=== PATIENT | female | born 1955 | race Caucasian/White ===

== ENCOUNTER 2019-04-29 09:07 | Observation (INO) ==
[2019-04-29 10:05] LABS: Basophils # 0.1 K/mcL (0.0-0.2); Basophils % 1.1 %; Eosinophils # 0.3 K/mcL (0.0-0.6); Eosinophils % 5.7 %; Hemoglobin 12.8 g/dL (11.5-15.4); Immature Granulocytes % 0.2 % (0-4); Lymphocytes # 1.7 K/mcL (0.6-4.6); Lymphocytes % 36.8 %; Mean Corpuscular HGB Conc 31.2 g/dL (31.6-35.5); Mean Corpuscular Hemoglobin 27.9 pg (28.0-33.3); Mean Corpuscular Volume 89.3 fL (83.0-100.0); Mean Platelet Volume 11.5 fL (9.4-12.4); Monocytes # 0.4 K/mcL (0.0-1.3); Monocytes % 9.4 %; Neutrophils # 2.1 K/mcL (1.6-8.9); Platelet Count 205 K/mcL (140-400); Red Blood Count 4.59 M/mcL (3.82-4.97); Red Cell Distribution Width 13.9 % (11.5-14.5); Segmented Neutrophils % 46.8 %; White Blood Count 4.6 K/mcL (4.3-11.1)
[2019-04-29 10:12] LABS: INR 0.9; Prothrombin Time 10.5 Seconds (9.4-12.1)
[2019-04-29 10:14] LABS: Activated Partial Thrombo Time 31.2 Seconds (26.0-36.0)
[2019-04-29 10:42] LABS: Alanine Aminotransferase 13 Units/L (7-52); Albumin 4.1 g/dL (3.5-5.7); Albumin/Globulin Ratio 1.5 (1.1-2.2); Alkaline Phosphatase 64 Units/L (34-104); Aspartate Amino Transferase 15 Units/L (13-39); BUN/Creatinine Ratio 26 (6-26); Bilirubin,Direct 0.1 mg/dL (0.0-0.2); Bilirubin,Indirect 0.5 mg/dL (0.0-1.2); Bilirubin,Total 0.6 mg/dL (0.3-1.0); Blood Urea Nitrogen 20 mg/dL (8-23); Calcium 9.2 mg/dL (8.6-10.3); Carbon Dioxide 27 mEq/L (23-29); Chloride 109 mEq/L (98-107); Ethanol < 10 mg/dL (Less than 10); Globulin 2.8 g/dL (2.4-3.5); Glucose 113 mg/dL (70-105); Osmolality,Calculated 297 (280-300); Potassium 4.9 mEq/L (3.5-5.1); Sodium 142 mEq/L (136-145); Thyroid Stimulating Hormone 1.727 mcIU/mL (0.340-5.600); Total Protein 6.9 g/dL (6.4-8.9); Troponin I < 0.03 ng/mL (< 0.04); eGFR For African Americans > 60 (> 60); eGFR For Non-African Americans > 60 (> 60)
--- NOTE | 2019-04-29 10:58 | Emergency Department Note ---
Disposition Clinical Impression: Altered mental status Qualifiers: Altered mental status type: unspecified Qualified Code(s): R41.82 - Altered mental status, unspecified Disposition: Admitted As Inpatient Condition: Fair Time of Disposition: 13:00 Altered Mental Status HPI - General Chief Complaint: ED Altered Mental Status Stated Complaint: AMS, abscess Time Seen by Provider: 04/29/19 09:13 Source: patient, family Limitations: no limitations Nursing Notes Reviewed: Yes Vital Signs Reviewed: Yes - History of Present Illness HPI Narrative: Kelli is a pleasant 62-year-old female. She presents the emergency room following a workup on a 24 for altered mental status with combative behavior. Daughter, at bedside states that she took her home yesterday and was able to start the antibiotics. Daughter states that the patient lives about 2 minutes from her house. Daughter received a phone call this morning saying that mom was worse and that she needed to go back to the emergency room. Mom notes that she felt increasingly weak especially in the legs. Kelli is concerned for dental abscess. Review of CT scan yesterday shows that there was no upward tracking and no abscess pocket in the facial cavities. Patient denies fevers and states that she did receive her antibiotics orally last night. No antibiotics were given this morning prior to coming to the emergency room. Patient and daughter both deny patient is having or complaining of fevers, chest pain, shortness of breath. Patient denies falls hits to the head or other injuries or concerns at this time. - Related Data Home Medications Medication Instructions Recorded Confirmed Clopidogrel [Plavix] 75 mg PO DAILY 04/28/19 04/29/19 Isosorbide MONOnitrate (24 HR) 60 mg PO DAILY 04/28/19 04/29/19 [Imdur] Lisinopril [Zestril] 20 mg PO DAILY 04/28/19 04/29/19 Metoprolol [Lopressor] 25 mg PO BID 04/28/19 04/29/19 amLODIPine [Norvasc] 5 mg PO DAILY 04/28/19 04/29/19 metFORMIN [Glucophage] 500 mg PO BIDWM 04/28/19 04/29/19 Aspirin [Lo-Dose Aspirin EC] 81 mg PO DAILY 04/29/19 04/29/19 Atorvastatin [Lipitor] 80 mg PO HS 04/29/19 04/29/19 Glimepiride [Amaryl] 2 mg PO DAILY 04/29/19 04/29/19 Allergies Allergy/AdvReac Type Severity Reaction Status Date / Time promethazine [From Phenergan] Allergy See Verified 04/29/19 15:54 Comments All systems ED: reviewed and negative except as stated. Review of Systems: As Per HPI Past Medical History - Past Medical History Medical history: Reports: asthma, diabetes, myocardial infarction Psychiatric history: Reports: depression - Social History Smoking Status: Current every day smoker Smokeless Tobacco Status: No Alcohol use: Reports: none Drug use: Reports: none Physical Exam - General Limitations: no limitations General appearance: alert Course Course Narrative: While in the emergency room patient had multiple episodes where she was breathing down to 38. On the monitor she had sinus bradycardic. Review of EKG on the monitor also reviewed this with sinus bradycardic. Patient initially declined that she took a beta shruthi to me however later told nursing staff that she was in fact taking a beta shruthi. Patient was was admitted per Dr. Grullon was counseled to cardiology. Vital Signs Temperature 98.1 F 04/29/19 09:09 Pulse Rate 51 04/29/19 09:09 Respiratory Rate 18 04/29/19 09:09 Blood Pressure 164/69 04/29/19 09:09 O2 Sat by Pulse Oximetry 98 04/29/19 09:09 Temperature 98.1 F 04/29/19 09:13 Pulse Rate 57 04/29/19 14:33 Respiratory Rate 18 04/29/19 14:33 Blood Pressure 101/49 04/29/19 14:33 O2 Sat by Pulse Oximetry 95 04/29/19 14:33 Oxygen Delivery Oxygen Delivery Room Air Altered Mental Status - Medical Records Medical records reviewed: Yes I reviewed the patient's medical records. - Lab Data Lab results reviewed: Yes I reviewed the patient's lab results. Result diagrams: 04/29/19 09:31 04/29/19 09:31 Lab Results 04/29/19 04/29/19 04/29/19 Range/Units 09:31 09:31 09:31 WBC 4.6 (4.3-11.1) K/mcL RBC 4.59 (3.82-4.97) M/mcL Hgb 12.8 (11.5-15.4) g/dL Hct 41.0 (35.3-44.9) % MCV 89.3 (83.0-100.0) fL MCH 27.9 L (28.0-33.3) pg MCHC 31.2 L (31.6-35.5) g/dL RDW 13.9 (11.5-14.5) % Plt Count 205 (140-400) K/mcL MPV 11.5 (9.4-12.4) fL Immature Gran % 0.2 (0-4) % Seg Neutrophils % 46.8 % Lymphocytes % 36.8 % Monocytes % 9.4 % Eosinophils % 5.7 % Basophils % 1.1 % Neutrophils # 2.1 (1.6-8.9) K/mcL Lymphocytes # 1.7 (0.6-4.6) K/mcL Monocytes # 0.4 (0.0-1.3) K/mcL Eosinophils # 0.3 (0.0-0.6) K/mcL Basophils # 0.1 (0.0-0.2) K/mcL PT 10.5 (9.4-12.1) Seconds INR 0.9 APTT 31.2 (26.0-36.0) Seconds Sodium 142 (136-145) mEq/L Potassium 4.9 (3.5-5.1) mEq/L Chloride 109 H (98-107) mEq/L Carbon Dioxide 27 (23-29) mEq/L BUN 20 (8-23) mg/dL Creatinine 0.78 (0.60-1.20) mg/dL Est GFR ( Amer) > 60 (> 60) Est GFR (Non-Af Amer) > 60 (> 60) BUN/Creatinine Ratio 26 (6-26) Glucose 113 H (70-105) mg/dL Calculated Osmolality 297 (280-300) Calcium 9.2 (8.6-10.3) mg/dL Total Bilirubin 0.6 (0.3-1.0) mg/dL Direct Bilirubin 0.1 (0.0-0.2) mg/dL Indirect Bilirubin 0.5 (0.0-1.2) mg/dL AST 15 (13-39) Units/L ALT 13 (7-52) Units/L Alkaline Phosphatase 64 (34-104) Units/L Troponin I < 0.03 (< 0.04) ng/mL Serum Total Protein 6.9 (6.4-8.9) g/dL Albumin 4.1 (3.5-5.7) g/dL Globulin 2.8 (2.4-3.5) g/dL Albumin/Globulin Ratio 1.5 (1.1-2.2) TSH 1.727 (0.340-5.600) mcIU/mL Urine Color (Yellow) Urine Clarity (Clear) Urine pH (5.0-8.0) pH Units Ur Specific [place] (1.010-1.025) Urine Protein (Neg-Trace) mg/dL Urine Glucose (UA) (Normal) mg/dL Urine Ketones (Negative) mg/dL Urine Blood (Negative) Urine Nitrite (Negative) Urine Bilirubin (Negative) Urine Urobilinogen (Normal) mg/dL Ur Leukocyte Esterase (Negative) Ur Culture Indicated? (NO) Urine Opiates Screen (Ibypiw=134) ng/mL Ur Buprenorphine Scrn (Cutoff=5) ng/mL Ur Barbiturates Screen ([place]=901) ng/mL Ur Phencyclidine Scrn (Cutoff=25) ng/mL Ur Amphetamines Screen (Noqkzp=9285) ng/mL U Benzodiazepines Scrn (Tigxmz=778) ng/mL Urine Cocaine Screen (Cutoff= 300) ng/mL U Marijuana (THC) Screen (Cutoff = 50) ng/mL Ur Drug Screen Interp Ethyl Alcohol < 10 (Less than 10) mg/dL 04/29/19 04/29/19 Range/Units 11:12 11:12 WBC (4.3-11.1) K/mcL RBC (3.82-4.97) M/mcL Hgb (11.5-15.4) g/dL Hct (35.3-44.9) % MCV (83.0-100.0) fL MCH (28.0-33.3) pg MCHC (31.6-35.5) g/dL RDW (11.5-14.5) % Plt Count (140-400) K/mcL MPV (9.4-12.4) fL Immature Gran % (0-4) % Seg Neutrophils % % Lymphocytes % % Monocytes % % Eosinophils % % Basophils % % Neutrophils # (1.6-8.9) K/mcL Lymphocytes # (0.6-4.6) K/mcL Monocytes # (0.0-1.3) K/mcL Eosinophils # (0.0-0.6) K/mcL Basophils # (0.0-0.2) K/mcL PT (9.4-12.1) Seconds INR APTT (26.0-36.0) Seconds Sodium (136-145) mEq/L Potassium (3.5-5.1) mEq/L Chloride (98-107) mEq/L Carbon Dioxide (23-29) mEq/L BUN (8-23) mg/dL Creatinine (0.60-1.20) mg/dL Est GFR ( Amer) (> 60) Est GFR (Non-Af Amer) (> 60) BUN/Creatinine Ratio (6-26) Glucose (70-105) mg/dL Calculated Osmolality (280-300) Calcium (8.6-10.3) mg/dL Total Bilirubin (0.3-1.0) mg/dL Direct Bilirubin (0.0-0.2) mg/dL Indirect Bilirubin (0.0-1.2) mg/dL AST (13-39) Units/L ALT (7-52) Units/L Alkaline Phosphatase (34-104) Units/L Troponin I (< 0.04) ng/mL Serum Total Protein (6.4-8.9) g/dL Albumin (3.5-5.7) g/dL Globulin (2.4-3.5) g/dL Albumin/Globulin Ratio (1.1-2.2) TSH (0.340-5.600) mcIU/mL Urine Color Yellow (Yellow) Urine Clarity Clear (Clear) Urine pH 6.0 (5.0-8.0) pH Units Ur Specific [place] 1.010 (1.010-1.025) Urine Protein Negative (Neg-Trace) mg/dL Urine Glucose (UA) Normal (Normal) mg/dL Urine Ketones Negative (Negative) mg/dL Urine Blood Negative (Negative) Urine Nitrite Negative (Negative) Urine Bilirubin Negative (Negative) Urine Urobilinogen Normal (Normal) mg/dL Ur Leukocyte Esterase Negative (Negative) Ur Culture Indicated? NO (NO) Urine Opiates Screen Negative (Rmggcm=440) ng/mL Ur Buprenorphine Scrn Negative (Cutoff=5) ng/mL Ur Barbiturates Screen Negative (Jtuzav=205) ng/mL Ur Phencyclidine Scrn Negative (Cutoff=25) ng/mL Ur Amphetamines Screen Negative (Aurqox=1513) ng/mL U Benzodiazepines Scrn Negative (Jeysde=723) ng/mL Urine Cocaine Screen Negative (Cutoff= 300) ng/mL U Marijuana (THC) Screen Negative (Cutoff = 50) ng/mL Ur Drug Screen Interp See Below Ethyl Alcohol (Less than 10) mg/dL - Radiology Data Radiology results reviewed: No I reviewed the patient's radiology results. Radiology labs were reviewed from yesterday. Repeat head scan repeats facial scan was not performed due to proximity and time from initial scans. Patient has been afebrile with the only abnormal vital sign the sinus bradycardia. She was not given any antipyretics and did not have an elevated temperature while in the emergency room. TPA Checklist - LKW: 3-4.5 hrs Add. Warnings/Precautions Patient/family understanding: The patient/family members have been counseled and understood the risk, benefit, and alternatives of treatment. Attestation Statement - Attestation Attestation: Patient was seen in cooperation with physician software developer manager. I reviewed the history, physical, assessment, and plan, and agree with the findings. I also had personal [id number] time with this patient and evaluated the patient. 63-year-old female returns to the ER having been seen last night for dental a bscess and mental status changes. Last night after thorough workup and I personally had seen the patient she actually was doing quite well and wanted to go home. We did offer admission and was declined at that time. She comes in today with increasing confusion she feels now swelling of the face on the right side as well as the left side, and some dizziness and unsteadiness with her gait. Review of systems as above remainder negative. Physical exam vital signs patient was bradycardic. Other vital signs are okay. ENT is less swollen than it was yesterday on the left side I do not appreciate significant swelling on the right side. Heart regular rhythm and bradycardia. Lungs are clear. Abdomen is soft and nontender. Extremities unremarkable. Neurologically she is alert moves all extremities no focal deficits. Skin no rashes. Psych normal. ED course. Workup was repeated as from yesterday. Labs did not show any significant abnormalities. Patient continued have issues of bradycardia and dizziness while here. She had no syncopal episodes while here. We spoke with the hospitalist service agreed to accept the patient for admission. I agree with the physician software developer manager assessment and plan. ED procedures I reviewed the patient's EKG as well as the resident physician interpretation and I agree with the findings.
[2019-04-29 11:48] LABS: Amphetamine Screen,Urine Negative ng/mL (Cutoff=1000); Barbiturate Screen,Urine Negative ng/mL (Cutoff=200); Benzodiazepines Screen,Urine Negative ng/mL (Cutoff=200); Cannabinoid Screen,Urine Negative ng/mL (Cutoff = 50); Cocaine Screen,Urine Negative ng/mL (Cutoff= 300); Opiate Screen,Urine Negative ng/mL (Cutoff=300); Phencyclidine Screen,Urine Negative ng/mL (Cutoff=25)
[2019-04-29 11:53] LABS: Bilirubin,Urine Negative (Negative); Blood,Urine Negative (Negative); Clarity,Urine Clear (Clear); Color,Urine Yellow (Yellow); Glucose,Urine (UA) Normal (Normal); Ketones,Urine Negative (Negative); Leukocyte Esterase,Urine Negative (Negative); Nitrite,Urine Negative (Negative); Protein,Urine Negative (Neg-Trace); Urobilinogen,Urine Normal (Normal)
[2019-04-29] MEDS ORDERED: Ampicillin/Sulbactam 3,000 MG in 0.9 % Sodium Chloride Mini Bag 100 ML IVPB ONE (13:43)
[2019-04-29] MEDS ORDERED: 0.9 % Sodium Chloride 1,000 ML ONE (14:10)
[2019-04-29] MEDS ORDERED: 0.9 % Sodium Chloride 1,000 ML IVC ONE (14:10)
[2019-04-29] MEDS ORDERED: traMADol 50 MG TABLET PO PRN (15:47)
[2019-04-29] MEDS ORDERED: Ondansetron 4 MG/2 ML VIAL IVP PRN (15:47)
[2019-04-29] MEDS ORDERED: Naloxone 0.4 MG/ML INJ IVP PRN (15:47)
[2019-04-29] MEDS ORDERED: Mag Hydrox/Al Hydrox/Simeth 30 ML UDC PO PRN (15:47)
[2019-04-29] MEDS ORDERED: MOM Conc 10 ML UD.LIQ PO PRN (15:47)
[2019-04-29] MEDS ORDERED: Acetaminophen 325 MG TABLET PO PRN (15:47)
[2019-04-29] MEDS ORDERED: *HR* Promethazine 25 MG/ML VIAL IVP PRN (15:47)
--- NOTE | 2019-04-29 16:21 | Internal Med History&Physical ---
Date of Encounter: 04/29/19 Time of Encounter: 16:15 Internal Medicine - H&P: HPI Admitted From: Home Plans for Post Hospital Care: Home History of present illness: Ms. Tejada is a 63 year old female with past medical history of diabetes mellitu s, CAD with stent placement, and hyperlipidemia presents from home with daughter because of left-sided facial pain and acute change of mental status. She was seen in the ED yesterday and was provided admission but declined. Started yesterday afternoon, patient noted that she had left-sided face pain and felt ill. Patient describes her face pain as beginning in the left upper cheek extending up the left side of her face into her left eye and left forehead. when further questioned, she admitted that she started to have left facial pain about a month ago and progressively got worse. Her daughter took her to urgent care who found possible abscess in the left upper gingiva. Patient wears dentures. She takes them out of her mouth only to brush them and then keeps them in at all other times. Additionally, patient started having some confusion which the daughter states as not knowing her situational awareness which then progressed into combativeness. At baseline, patient lives independently working a steady job 5 days per week. Today, patient started experiencing right-sided facial pain which prompted her to return to the ED. While in the ED, telemetry captured a brief bradycardia with heart rate between 30-40. Apparently cardiology was called, recommended hold beta shruthi. CT of face showed soft tissue swelling at the left upper gum without evidence of abscess. Patient received 1 dose of Unasyn at the ED, was admitted for further evaluation. CODE STATUS will be full code. Past Med Surg Social Fam HX - Past Medical History Medical history: asthma, diabetes, myocardial infarction Additional medical history: stents, cath, eye surgery, cataract removed Psychiatric history: depression - Social History Smoking Status: Current every day smoker Smokeless Tobacco Status: No Alcohol use: none Drug use: none Internal Medicine - H&P: Meds Clopidogrel [Plavix] 75 mg PO DAILY 04/28/19 [History] Isosorbide MONOnitrate (24 HR) [Imdur] 60 mg PO DAILY 04/28/19 [History] Lisinopril [Zestril] 20 mg PO DAILY 04/28/19 [History] Metoprolol [Lopressor] 25 mg PO BID 04/28/19 [History] amLODIPine [Norvasc] 5 mg PO DAILY 04/28/19 [History] metFORMIN [Glucophage] 500 mg PO BIDWM 04/28/19 [History] Aspirin [Lo-Dose Aspirin EC] 81 mg PO DAILY 04/29/19 [History] Atorvastatin [Lipitor] 80 mg PO HS 04/29/19 [History] Glimepiride [Amaryl] 2 mg PO DAILY 04/29/19 [History] Allergy/AdvReac Type Severity Reaction Status Date / Time promethazine [From Phenergan] Allergy See Verified 04/29/19 15:54 Comments All Systems PM: A 10-system review of systems was performed and is negative for pertinent findings except as documented above in the HPI. Review of systems: REVIEW OF SYSTEMS: CONSTITUTIONAL: No weight loss, fever, chills, weakness or fatigue. HEENT: see HPI. SKIN: No rash or itching. CARDIOVASCULAR: No chest pain, chest pressure or chest discomfort. No palpitations or edema. RESPIRATORY: No shortness of breath, cough or sputum. GASTROINTESTINAL: No anorexia, nausea, vomiting or diarrhea. No abdominal pain or blood. GENITOURINARY: No dysuria, urgency, or frequency. NEUROLOGICAL: No headache, dizziness, syncope, paralysis, ataxia, numbness or tingling in the extremities. No change in bowel or bladder control. MUSCULOSKELETAL: No muscle, back pain, joint pain or stiffness. HEMATOLOGIC: No anemia, bleeding or bruising. LYMPHATICS: No enlarged nodes. No history of splenectomy. PSYCHIATRIC: No history of depression or anxiety. ENDOCRINOLOGIC: No reports of sweating, cold or heat intolerance. No polyuria or polydipsia. - Constitutional Vitals: Temp Pulse Resp BP Pulse Ox 98.1 F 57 18 101/49 95 04/29/19 09:13 04/29/19 14:33 04/29/19 14:33 04/29/19 14:33 04/29/19 14:33 General appearance: Present: A&O X 3 Exam: PHYSICAL EXAMINATION: GENERAL APPEARANCE: The patient is alert, oriented and in no acute distress. HEENT: A bit linear ulcer noted at the left gum fold, a small ulcer noted at the right gum with surrounding soft tissue swelling. No drainage or mass noted. NECK: Supple without lymphadenopathy. HEART: Regular rate and rhythm. LUNGS: No crackles or wheezes are heard. ABDOMEN: Soft, nontender, nondistended with good bowel sounds heard. Inguinal area is normal. EXTREMITIES: Without cyanosis, clubbing or edema. NEUROLOGICAL: Gross nonfocal. SKIN: Warm and dry without any rash. Internal Med - H&P Results - Labs CBC & Chem 7: 04/29/19 09:31 04/29/19 09:31 Labs: Short CBC 04/29/19 Range/Units 09:31 WBC 4.6 (4.3-11.1) K/mcL Hgb 12.8 (11.5-15.4) g/dL Hct 41.0 (35.3-44.9) % Plt Count 205 (140-400) K/mcL Neutrophils # 2.1 (1.6-8.9) K/mcL BMP 04/29/19 09:31 Sodium 142 Potassium 4.9 Chloride 109 H Carbon Dioxide 27 BUN 20 Creatinine 0.78 Glucose 113 H Calcium 9.2 Cardiac Enzymes 04/29/19 Range/Units 09:31 Troponin I < 0.03 (< 0.04) ng/mL Liver Function 04/29/19 Range/Units 09:31 Total Bilirubin 0.6 (0.3-1.0) mg/dL Direct Bilirubin 0.1 (0.0-0.2) mg/dL AST 15 (13-39) Units/L ALT 13 (7-52) Units/L Alkaline Phosphatase 64 (34-104) Units/L Albumin 4.1 (3.5-5.7) g/dL Urine 04/29/19 Range/Units 11:12 Urine Color Yellow (Yellow) Urine Clarity Clear (Clear) Urine pH 6.0 (5.0-8.0) pH Units Ur Specific [place] 1.010 (1.010-1.025) Urine Protein Negative (Neg-Trace) mg/dL Urine Glucose (UA) Normal (Normal) mg/dL - Impressions ITS Impressions Chest X-Ray 04/29/19 09:49 IMPRESSION: No acute abnormality. D/ / Jasiel Lopez MD / Jasiel Lopez MD Interpreting Provider: Jasiel Lopez MD - Assessment and Plan (1) Gum lesion Current Visit: Yes Status: Acute Assessment and plan: Patient presented with left-sided facial pain. CT showed left gum soft tissue swelling without evidence of abscess. On physical exam, A long linear ulcer noted inside the gum and soft palate fold without drainage. The base of ulcer seems clean without bleeding. Likely gum ulcer caused by improper use of denture. We will obtain culture, empirically continue IV Unasyn. If ulcer does not heal after a month, tissue biopsy as outpatient. Pain control. (2) Change in mental state Current Visit: Yes Status: Acute Assessment and plan: currently alert and oriented, she is not confused. UA was negative for UTI, urine drug screen was negative. No electrolytes abnormalities on the lab results. No signs of systemic infection. Continue monitoring. Qualifiers: Altered mental status type: unspecified Qualified Code(s): R41.82 - Altered mental status, unspecified (3) Sinus bradycardia Current Visit: Yes Status: Acute Assessment and plan: showed sinus bradycardia with HR around the 50s most of the time, 1 episode of bradycardia with heart rate of 30s. She was taking metoprolol at home. Will hold per cardiology recommendation. Continue telemetry monitoring, EKG as needed. Atropin as needed if she becomes symptomatic. (4) CAD (coronary artery disease) Current Visit: No Status: Chronic Assessment and plan: No chest pain. Continue home medications including aspirin and Plavix. Qualifiers: Coronary Disease-Associated Artery/Lesion type: [place] artery [place] vs. transplanted heart: [place] heart Associated angina: without angina Qualified Code(s): I25.10 - Atherosclerotic heart disease of [place] coronary artery without angina pectoris (5) Diabetes mellitus Current Visit: No Status: Chronic Assessment and plan: Hold oral agent, started patient on insulin sliding scale. Qualifiers: Diabetes mellitus type: type 2 Diabetes mellitus prison insulin use: without intermediate project manager use Diabetes mellitus complication status: with other specified complication Qualified Code(s): E11.69 - Type 2 diabetes mellitus with other specified complication (6) Hyperlipidemia Current Visit: No Status: Chronic Assessment and plan: Continue home medication. Qualifiers: Hyperlipidemia type: unspecified Qualified Code(s): E78.5 - Hyperlipidemia, unspecified (7) DVT prophylaxis Current Visit: Yes Status: Acute Assessment and plan: Heparin subcutaneous. - Time Spent With Patient Total time spent is greater than 50% in coordination of care (as documented) at patient's floor/unit and/or counseling patient: Greater than 35 minutes
[2019-04-29] MEDS ORDERED: Dextrose Gel 15 GM/37.5 ML TUBE PO PRN ×2 (16:41)
[2019-04-29] MEDS ORDERED: D5% in Water 1,000 ML IVC PRN (16:41)
[2019-04-29] MEDS ORDERED: *HR* Dextrose 50 % in Water (Syg) 50 ML SYRINGE IVP PRN (16:41)
[2019-04-29] MEDS: *HR* Heparin 5,000 UNIT/ML VIAL SQ SCH (17:34)
[2019-04-29] MEDS: Ampicillin/Sulbactam 1,500 MG in 0.9 % Sodium Chloride Mini Bag 100 ML IVPB SCH (20:02)
[2019-04-29] MEDS: Insulin LISPRO 300 UNITS/3 ML VIAL SQ SCH (20:03)
[2019-04-30 04:19] LABS: Basophils # 0.1 K/mcL (0.0-0.2); Basophils % 1.1 %; Eosinophils # 0.3 K/mcL (0.0-0.6); Eosinophils % 6.2 %; Hematocrit 38.4 % (35.3-44.9); Immature Granulocytes % 0.2 % (0-4); Lymphocytes # 1.7 K/mcL (0.6-4.6); Lymphocytes % 37.8 %; Mean Corpuscular HGB Conc 31.3 g/dL (31.6-35.5); Mean Corpuscular Volume 89.5 fL (83.0-100.0); Mean Platelet Volume 11.4 fL (9.4-12.4); Monocytes # 0.4 K/mcL (0.0-1.3); Monocytes % 9.5 %; Neutrophils # 2.1 K/mcL (1.6-8.9); Platelet Count 172 K/mcL (140-400); Red Blood Count 4.29 M/mcL (3.82-4.97); Red Cell Distribution Width 13.8 % (11.5-14.5); Segmented Neutrophils % 45.2 %; White Blood Count 4.6 K/mcL (4.3-11.1)
[2019-04-30 04:36] LABS: BUN/Creatinine Ratio 25 (6-26); Blood Urea Nitrogen 20 mg/dL (8-23); Calcium 8.8 mg/dL (8.6-10.3); Carbon Dioxide 28 mEq/L (23-29); Chloride 110 mEq/L (98-107); Glucose 106 mg/dL (70-105); Osmolality,Calculated 301 (280-300); Potassium 4.2 mEq/L (3.5-5.1); Sodium 144 mEq/L (136-145); eGFR For African Americans > 60 (> 60); eGFR For Non-African Americans > 60 (> 60)
[2019-04-30] MEDS: Ampicillin/Sulbactam 1,500 MG in 0.9 % Sodium Chloride Mini Bag 100 ML IVPB SCH ×4 (05:33→20:45)
[2019-04-30] MEDS: *HR* Heparin 5,000 UNIT/ML VIAL SQ SCH ×2 (05:37→17:33)
[2019-04-30] MEDS: Insulin LISPRO 300 UNITS/3 ML VIAL SQ SCH ×4 (07:46→20:45)
[2019-04-30] MEDS: Isosorbide MONOnitrate (24 HR) 60 MG TAB.ER.24H PO SCH (08:40)
[2019-04-30] MEDS: Lisinopril 20 MG TABLET PO SCH (08:40)
[2019-04-30] MEDS: Vitamin B Complex/Vit C/Vit E 1 EACH TABLET PO SCH (08:40)
[2019-04-30] MEDS: amLODIPine 5 MG TABLET PO SCH (08:40)
[2019-04-30] MEDS: Aspirin Enteric Coated 81 MG Tablet PO SCH (08:40)
--- NOTE | 2019-04-30 09:01 | Electrocardiograph Report ---
[address] [address] Test Date: 2019-04-29 Pat Name: Kelli Tejada Department: EXAM6 Room: 3B12 Gender: F Kitchen Cleaner: : 1955 Requested By: Gabi Prasad Order Number: [id number] Reading MD: Tameka Carlos Measurements Intervals [place] Rate: 45 P: 68 CT: 164 QRS: 46 QRSD: 103 T: 43 QT: 448 QTc: 388 Interpretive Statements Sinus bradycardia Low voltage, precordial leads Electronically Signed On 04-30-2019 8:59:22 EDT by Tameka Carlos
--- NOTE | 2019-04-30 09:22 | Internal Med Progress Note ---
Hospitalist Progress Note - Encounter Date of Encounter: 04/30/19 Time of Encounter: 09:20 - Subjective Interval History: Ms. Tejada is a 63 year old female with past medical history of diabetes mellitus, CAD with stent placement, and hyperlipidemia presents from home with daughter because of left-sided facial pain and acute change of mental status. Facial CT showed soft tissue swelling of the left thumb without evidence of abscess. Patient received IV Unasyn and was admitted. Pt seen and examined in the room, she reported absence of fever, chills, or night sweats overnight. She still reported bilateral facial pain but has become less severe. - Exam Vitals: Temp Pulse Resp BP Pulse Ox 98 F 49 18 128/72 93 04/30/19 06:53 04/30/19 06:53 04/30/19 06:53 04/30/19 06:53 04/30/19 06:53 Exam: PHYSICAL EXAMINATION: GENERAL APPEARANCE: The patient is alert, oriented and in no acute distress. HEENT: A bit linear ulcer noted at the left gum fold, a small ulcer noted at the right gum with surrounding soft tissue swelling. No drainage or mass noted. NECK: Supple without lymphadenopathy. HEART: Regular rate and rhythm. LUNGS: No crackles or wheezes are heard. ABDOMEN: Soft, nontender, nondistended with good bowel sounds heard. Inguinal area is normal. EXTREMITIES: Without cyanosis, clubbing or edema. NEUROLOGICAL: Gross nonfocal. SKIN: Warm and dry without any rash. - Assessment and Plan (1) Gum lesion Current Visit: Yes Status: Acute Assessment and Plan: 04/29 Patient presented with left-sided facial pain. CT showed left gum soft tissue swelling without evidence of abscess. On physical exam, A long linear ulcer noted inside the gum and soft palate fold without drainage. The base of ulcer seems clean without bleeding. Likely gum ulcer caused by improper use of denture. We will obtain culture, empirically continue IV Unasyn. If ulcer does not heal after a month, tissue biopsy as outpatient. Pain control. 04/30 Facial pain and swelling are improving. Continue current treatment. (2) Change in mental state Current Visit: Yes Status: Resolved Assessment and Plan: currently alert and oriented, she is not confused. UA was negative for UTI, urine drug screen was negative. No electrolytes abnormalities on the lab results. No signs of systemic infection. Continue monitoring. (3) Sinus bradycardia Current Visit: Yes Status: Acute Assessment and Plan: 04/29 tele showed sinus bradycardia with HR around the 50s most of the time, 1 episode of bradycardia with heart rate of 30s. She was taking metoprolol at home. Will hold per cardiology recommendation. Continue telemetry monitoring, EKG as needed. Atropin as needed if she becomes symptomatic. 04/30 Overnight telemetry showed sinus rhythm with heart rate around 50s. Continue hold metoprolol for now. (4) CAD (coronary artery disease) Current Visit: No Status: Chronic Assessment and Plan: No chest pain. Continue home medications including aspirin and Plavix. (5) Diabetes mellitus Current Visit: No Status: Chronic Assessment and Plan: Hold oral agent, started patient on insulin sliding scale. Blood glucose well controlled. (6) Hyperlipidemia Current Visit: No Status: Chronic Assessment and Plan: Continue home medication. (7) DVT prophylaxis Current Visit: Yes Status: Acute Assessment and Plan: Heparin subcutaneous. - Time Spent with Patient Total time spent is greater than 50% in coordination of care (as documented) at patient's floor/unit and/or counseling patient: Greater than 35 minutes Plan of Care Discussed with: patient Internal Medicine: Result - Labs CBC & Chem 7: 04/30/19 03:35 04/30/19 03:35 Labs: Short CBC 04/29/19 04/30/19 Range/Units 09:31 03:35 WBC 4.6 4.6 (4.3-11.1) K/mcL Hgb 12.8 12.0 (11.5-15.4) g/dL Hct 41.0 38.4 (35.3-44.9) % Plt Count 205 172 (140-400) K/mcL Neutrophils # 2.1 2.1 (1.6-8.9) K/mcL BMP 04/29/19 04/30/19 09:31 03:35 Sodium 142 144 Potassium 4.9 4.2 Chloride 109 H 110 H Carbon Dioxide 27 28 BUN 20 20 Creatinine 0.78 0.81 Glucose 113 H 106 H Calcium 9.2 8.8 Cardiac Enzymes 04/29/19 Range/Units 09:31 Troponin I < 0.03 (< 0.04) ng/mL Liver Function 04/29/19 Range/Units 09:31 Total Bilirubin 0.6 (0.3-1.0) mg/dL Direct Bilirubin 0.1 (0.0-0.2) mg/dL AST 15 (13-39) Units/L ALT 13 (7-52) Units/L Alkaline Phosphatase 64 (34-104) Units/L Albumin 4.1 (3.5-5.7) g/dL Urine 04/29/19 Range/Units 11:12 Urine Color Yellow (Yellow) Urine Clarity Clear (Clear) Urine pH 6.0 (5.0-8.0) pH Units Ur Specific [place] 1.010 (1.010-1.025) Urine Protein Negative (Neg-Trace) mg/dL Urine Glucose (UA) Normal (Normal) mg/dL - ABG Interpretation ABG results: PT/INR, D-dimer PT 10.5 Seconds (9.4-12.1) 04/29/19 09:31 - Impressions Impressions Chest X-Ray 04/29/19 09:49 IMPRESSION: No acute abnormality. D/ / Jasiel Lopez MD / Jasiel Lopez MD Interpreting Provider: Jasile Lopez MD Consult Discharge Plan - Plan Referrals: Wilber Stephens MD [Primary Care Provider] - (2) Change in mental state Qualifiers: Altered mental status type: unspecified Qualified Code(s): R41.82 - Altered mental status, unspecified (4) CAD (coronary artery disease) Qualifiers: Coronary Disease-Associated Artery/Lesion type: [place] artery [place] vs. 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
--- NOTE | 2019-04-30 14:25 | Cardiology Consult Note ---
<Kilo Brown - Last Filed: 04/30/19 15:11> Date of Encounter: 04/30/19 Time of Encounter: 14:10 Assessment and Plan (1) Sinus bradycardia Current Visit: Yes Status: Chronic EKG shows bradycardia, and telemetry overnight shows HR in 50s. Lowest HR recorded in ED in upper 30s. Admits to taking BB prior to admission. Previous EF 55% September 2013. No NSWMA. 24 hour telemetry reviewed with average HR 49, sinus bradycardia with no significant events or pauses noted. Clinically asymptomatic. No clinical justification for pace maker. Sees Dr. Crystal and states "normal HR range is in 50s". Patient takes Metoprolol Tartrate 25mg twice daily. BB currently stopped. Will f/u as outpatient. Cardiology signing off; discussed and reviewed with Dr. Carlos. Patient verbalized and understands current plan. (2) CAD (coronary artery disease) Current Visit: No Status: Chronic Without chest pain; stable symptoms. Continue home medication antiplatelet therapy, statin, and ACEI as tolerated. BB on hold d/t bradycardia. Trops negative x 1. Qualifiers: Coronary Disease-Associated Artery/Lesion type: [place] artery [place] vs. transplanted heart: [place] heart Associated angina: without angina Qualified Code(s): I25.10 - Atherosclerotic heart disease of [place] coronary artery without angina pectoris Discussion w patient/family: The assessment and plan as outlined above was discussed with the patient and/or family members who expressed understanding and agreement. All questions were answered. Thank you for involving us in the care of your patient. Please call with any questions. History of Present Illness Consult date: 04/30/19 Consult reason: bradycardia Chief complaint: Jaw pain History of present illness: Ms. Tejada is a 63 year old female with PMH of NSTEMI/stent LAD 08/19/13, JON LAD 04/02/15, DM, HTN, HLD, CAD, tobacco use Sees Dr. Crystal. Admitted for left- sided facial pain for last month, AMS, and being treated with antibiotics for possible infection located left upper oral cavity soft tissue with swelling. She was seen in the ED Tuesday and declined admission. Symptoms worsen and r esulted in her returning to hospital. Complaints of bradycardia on admission while on BB, and requested to be seen by cardiology. Denies any chest pain, SOB, dizziness, palpitations, edema, headaches, n/v, n/t abdominal pain, fever, chills. Denies any bleeding episodes. Denies jaw pain radiating from or related to any chest pain. Past Med Surg Social Fam HX - Past Medical History Attestation: Yes The following information was validated with the patient. Source: patient, old records reviewed Medical history: asthma, COPD, coronary artery disease, diabetes, hyperlipi demia, hypertension, myocardial infarction Additional medical history: stents, cath, eye surgery, cataract removed Psychiatric history: depression - Past Surgical History Surgical History: cataract, hip replacement - Social History Smoking Status: Current every day smoker Packs per day: 2 Smokeless Tobacco Status: No Alcohol use: none Drug use: none - Family History Mother Living Status: Age at : 65 Cause of : [place] Hx Family Cardiac Disorders: Yes ([place]) Hx Family Neurologic Disorders: Yes (TIA) Father Living Status: Age at : 72 Cause of : CHF Hx Family Cardiac Disorders: Yes Hx Family Respiratory Disorders: Yes Medications and Allergies Clopidogrel [Plavix] 75 mg PO DAILY 04/28/19 [History] Isosorbide MONOnitrate (24 HR) [Imdur] 60 mg PO DAILY 04/28/19 [History] Lisinopril [Zestril] 20 mg PO DAILY 04/28/19 [History] Metoprolol [Lopressor] 25 mg PO BID 04/28/19 [History] amLODIPine [Norvasc] 5 mg PO DAILY 04/28/19 [History] metFORMIN [Glucophage] 500 mg PO BIDWM 04/28/19 [History] Aspirin [Lo-Dose Aspirin EC] 81 mg PO DAILY 04/29/19 [History] Atorvastatin [Lipitor] 80 mg PO HS 04/29/19 [History] Glimepiride [Amaryl] 2 mg PO DAILY 04/29/19 [History] Allergy/AdvReac Type Severity Reaction Status Date / Time promethazine [From Phenergan] AdvReac Mild Anxiety Verified 04/29/19 18:12 All Systems Review: The remainder of the systems were reviewed and are negative - Cardiovascular Cardiovascular: as per HPI Physical Examination Vital Signs, Last 4 Hours Temp Pulse Resp BP Pulse Ox 04/30/19 11:27 98.0 F 48 12 106/58 94 Selected Entries 04/30/19 03:41 04/30/19 06:53 04/30/19 11:27 Blood Pressure 116/71 128/72 106/58 Selected Entries 04/30/19 03:41 04/30/19 06:53 04/30/19 11:27 Pulse Rate 47 49 48 General: Conversant, No Apparent Distress HEENT: Atraumatic, Normocephaly, Mucus Membranes Moist, Other Neck: No JVD, Normal carotid pulses Cardiac: Reg Rate and Rhythm, Normal S1 and S2, No Murmur, Other (bradycardia) Lungs: Normal Breath Sounds, Other (exp. wheezes bilateral) Neuro: Alert and responsive, No focal deficits noted Abdomen: Soft, Non-Tender Skin: No rashes noted on visualized skin Musculoskeletal: No Chest Wall Tenderness Extremities: No Clubbing, No Cyanosis, No Edema, Normal Pulses Results 04/30/19 03:35 04/30/19 03:35 Lab Results 04/30/19 04/30/19 03:35 03:35 WBC 4.6 Hgb 12.0 Hct 38.4 Plt Count 172 Sodium 144 Potassium 4.2 Chloride 110 H Carbon Dioxide 28 BUN 20 Creatinine 0.81 Glucose 106 H Calcium 8.8 Magnesium 2.0 Active Medications Acetaminophen (Tylenol) 650 mg PO Q6HR PRN PRN Reason: Mild Pain/Fever Stop: 10/29/19 15:48 Al Hydrox/Mg Hydrox/Simethicone (Maalox) 15 ml PO Q6HR PRN PRN Reason: Dyspepsia Stop: 10/29/19 15:48 Amlodipine Besylate (Norvasc) 5 mg PO DAILY [facility]; Protocol Stop: 10/30/19 09:01 Last Admin: 04/30/19 08:40 Dose: 5 mg Documented by: Aspirin (Aspirin Ec) 81 mg PO DAILY [facility] Stop: 10/30/19 09:01 Last Admin: 04/30/19 08:40 Dose: 81 mg Documented by: Atorvastatin Calcium (Lipitor) 80 mg PO [facility] Stop: 10/29/19 21:01 Last Admin: 04/29/19 20:03 Dose: 80 mg Documented by: Clopidogrel Bisulfate (Plavix) 75 mg PO DAILY [facility] Stop: 10/30/19 09:01 Last Admin: 04/30/19 08:40 Dose: 75 mg Documented by: Dextrose/Water (Dextrose 50% (Syg)) 25 ml IVP AD PRN PRN Reason: Hypoglycemia Stop: 10/29/19 16:42 Glucagon (Glucagen) 1 mg IM ONCE PRN PRN Reason: Hypoglycemia Stop: 10/29/19 16:42 Glucose (Gluctose) 15 gm PO ONCE PRN PRN Reason: Hypoglycemia Stop: 10/29/19 16:42 Glucose (Gluctose) 30 gm PO ONCE PRN PRN Reason: Hypoglycemia Stop: 10/29/19 16:42 Heparin Sodium (Porcine) (Heparin) 5,000 unit SQ Q12HCO [facility]; Protocol Stop: 10/29/19 18:01 Last Admin: 04/30/19 05:37 Dose: 5,000 unit Documented by: Ampicillin Sodium/Sulbactam Sodium 1,500 mg/ Sodium Chloride 100 mls @ 200 mls/hr IVPB Q6H [facility] Stop: 10/29/19 20:01 Last Infusion: 04/30/19 14:13 Dose: Infused Documented by: Dextrose (Dextrose 5%) 1,000 mls @ 100 mls/hr IVC .Q10H PRN PRN Reason: HYPOGLYCEMIA Stop: 10/29/19 16:42 Insulin Human Lispro (Humalog) 0 units SQ HS [facility]; Protocol Stop: 10/29/19 21:01 Last Admin: 04/29/19 20:03 Dose: Not Given Documented by: Insulin Human Lispro (Humalog) 0 units SQ TIDAC [facility]; Protocol Stop: 10/30/19 07:31 Last Admin: 04/30/19 12:42 Dose: 4 units Documented by: Isosorbide Mononitrate (Imdur) 60 mg PO DAILY [facility] Stop: 10/30/19 09:01 Last Admin: 04/30/19 08:40 Dose: 60 mg Documented by: Lisinopril (Zestril) 20 mg PO DAILY [facility]; Protocol Stop: 10/30/19 09:01 Last Admin: 04/30/19 08:40 Dose: 20 mg Documented by: Magnesium Hydroxide (Milk Of Magnesia Conc) 10 ml PO DAILY PRN PRN Reason: Constipation Stop: 10/29/19 15:48 Naloxone HCl (Narcan) 0.4 mg IVP Q2MPRN PRN PRN Reason: SEE COMMENTS Stop: 10/29/19 15:48 Ondansetron HCl (Zofran) 4 mg IVP Q8HR PRN PRN Reason: Nausea And Vomiting Stop: 10/29/19 15:48 Promethazine HCl (Phenergan) 12.5 mg IVP Q6HR PRN PRN Reason: Nausea And Vomiting Stop: 10/29/19 15:48 Tramadol HCl (Ultram) 50 mg PO Q6HR PRN PRN Reason: Moderate Pain Stop: 10/29/19 15:48 Vitamin B Complex/Vit C/Vit E (Stresstab) 1 each PO DAILY [facility]; Protocol Stop: 10/30/19 09:01 Last Admin: 04/30/19 08:40 Dose: 1 each Documented by: ITS Impressions Chest X-Ray 04/29/19 09:49 IMPRESSION: No acute abnormality. D/ / Jasiel Lopez MD / Jasiel Lopez MD Interpreting Provider: Jasiel Lopez MD - Imaging and Cardiology Chest Xray: report reviewed - EKG Interpretation EKG results cardiology: no diagnostic ischemia, other (bradycardia) Consult Discharge Plan - Plan Referrals: Wilber Stephens MD [Primary Care Provider] - HAS-BLED Score - Score Medication usage predisposing to bleeding: Antiplatelet agents, NSAIDs, Anticoagulants Score: 1 <Tameka Carlos - Last Filed: 04/30/19 16:04> Date of Encounter: 04/30/19 - Attending Attestation I examined this patient and my medical decision-making was reviewed with the [employer]. I agree with the documented findings, disposition and treatment plan as described. Ms. Tejada presents with jaw pain being treated for a dental infection. Noted by Hospitalist to have bradycardia. Bradycardia is not new, generally has HR 50s as outpatient. No symptoms of pre syncope or syncope. Beta shruthi stopped during hospitalization. Ok to hold BB. Recommend outpatient Cardiology follow up with Dr. Crystal. Will sign off. Assessment and Plan Discussion w patient/family: The assessment and plan as outlined above was discussed with the patient and/or family members who expressed understanding and agreement. All questions were answered. Thank you for involving us in the care of your patient. Please call with any questions. History of Present Illness History of present illness: Ms. Tejada is a 63 year old female All Systems Review: The remainder of the systems were reviewed and are negative Physical Examination Vital Signs, Last 4 Hours Temp Pulse Resp BP Pulse Ox 04/30/19 15:23 98.2 F 48 19 107/58 95 Results 04/30/19 03:35 04/30/19 03:35 Lab Results 04/30/19 04/30/19 03:35 03:35 WBC 4.6 Hgb 12.0 Hct 38.4 Plt Count 172 Sodium 144 Potassium 4.2 Chloride 110 H Carbon Dioxide 28 BUN 20 Creatinine 0.81 Glucose 106 H Calcium 8.8 Magnesium 2.0
[2019-04-30] MEDS ORDERED: Melatonin 3 MG TABLET PO PRN (21:53)
[2019-05-01] MEDS: Ampicillin/Sulbactam 1,500 MG in 0.9 % Sodium Chloride Mini Bag 100 ML IVPB SCH ×2 (02:47→09:34)
[2019-05-01 04:45] LABS: Basophils % 0.7 %; Eosinophils # 0.2 K/mcL (0.0-0.6); Eosinophils % 5.3 %; Hematocrit 37.2 % (35.3-44.9); Hemoglobin 11.8 g/dL (11.5-15.4); Immature Granulocytes % 0.2 % (0-4); Lymphocytes # 1.7 K/mcL (0.6-4.6); Lymphocytes % 39.1 %; Mean Corpuscular HGB Conc 31.7 g/dL (31.6-35.5); Mean Corpuscular Hemoglobin 27.9 pg (28.0-33.3); Mean Corpuscular Volume 87.9 fL (83.0-100.0); Mean Platelet Volume 11.3 fL (9.4-12.4); Monocytes # 0.4 K/mcL (0.0-1.3); Monocytes % 9.4 %; Platelet Count 166 K/mcL (140-400); Red Blood Count 4.23 M/mcL (3.82-4.97); Red Cell Distribution Width 13.7 % (11.5-14.5); Segmented Neutrophils % 45.3 %; White Blood Count 4.4 K/mcL (4.3-11.1)
[2019-05-01 05:03] LABS: BUN/Creatinine Ratio 24 (6-26); Blood Urea Nitrogen 15 mg/dL (8-23); Calcium 8.9 mg/dL (8.6-10.3); Carbon Dioxide 25 mEq/L (23-29); Chloride 111 mEq/L (98-107); Glucose 108 mg/dL (70-105); Osmolality,Calculated 295 (280-300); Sodium 142 mEq/L (136-145); eGFR For African Americans > 60 (> 60); eGFR For Non-African Americans > 60 (> 60)
[2019-05-01] MEDS: *HR* Heparin 5,000 UNIT/ML VIAL SQ SCH (05:30)
[2019-05-01 07:17] VITALS: BP 114/67
[2019-05-01] MEDS: Insulin LISPRO 300 UNITS/3 ML VIAL SQ SCH (08:00)
--- NOTE | 2019-05-01 09:03 | Discharge Summary ---
- NOTES TO OUTPATIENT PROVIDER Notes to Outpatient Provider: f/u with PCP within a week. Date of Encounter: 05/01/19 Time of Encounter: 08:59 - Discharge Diagnosis (1) Gum lesion Priority: Primary Status: Acute Assessment and Plan: 04/29 Patient presented with left-sided facial pain. CT showed left gum soft tissue swelling without evidence of abscess. On physical exam, A long linear ulcer noted inside the gum and soft palate fold without drainage. The base of ulcer seems clean without bleeding. Likely gum ulcer caused by improper use of denture. We will obtain culture, empirically continue IV Unasyn. If ulcer does not heal after a month, tissue biopsy as outpatient. Pain control. 04/30 Facial pain and swelling are improving. Continue current treatment. (2) Change in mental state Priority: Primary Status: Resolved Qualifiers: Altered mental status type: unspecified Qualified Code(s): R41.82 - Altered mental status, unspecified (3) Sinus bradycardia Priority: Primary Status: Acute (4) CAD (coronary artery disease) Priority: Secondary Status: Chronic Qualifiers: Coronary Disease-Associated Artery/Lesion type: [place] artery [place] vs. 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 Tejada is a 63 year old female with past medical history of diabetes mellitus, CAD with stent placement, and hyperlipidemia presents from home with daughter because of left-sided facial pain and acute change of mental status. She was seen in the ED yesterday and was provided admission but declined. Star mat yesterday afternoon, patient noted that she had left-sided face pain and felt ill. While in the ED, telemetry captured a brief bradycardia with heart rate between 30-40. Apparently cardiology was called, recommended hold beta shruthi. CT of face showed soft tissue swelling at the left upper gum without evidence of abscess. Patient received 1 dose of Unasyn at the ED, was admitted for further evaluation. Pateint continue receiving IV Unasyn while in the hospital. Cardiology was consult her regarding bradycardia. Patient was instructed not to take beta shruthi, follow-up as outpatient. On the second hospital day, patient reported resolution of facial pain and swelling. She is eager to go home and start to walk. Patient is discharged home, she was instructed to continue take oral antibiotics for 5 days, not take metoprolol until seen by Dr. Crystal. Discharge discussed with: patient Time spent discussing smoking cessation with patient: more than 10 minutes - Time Spent with Patient Total time spent providing and/or coordinating discharge services: Time spent: Greater than 30 minutes - Discharge Medications Prescriptions: New Amoxicillin/Clavulanate [Augmentin] 875 mg PO BIDWM #10 tablet Continued Isosorbide MONOnitrate (24 HR) [Imdur] 60 mg PO DAILY metFORMIN [Glucophage] 500 mg PO BIDWM Lisinopril [Zestril] 20 mg PO DAILY Clopidogrel [Plavix] 75 mg PO DAILY amLODIPine [Norvasc] 5 mg PO DAILY Atorvastatin [Lipitor] 80 mg PO HS Aspirin [Lo-Dose Aspirin EC] 81 mg PO DAILY Glimepiride [Amaryl] 2 mg PO DAILY Discontinued Metoprolol [Lopressor] 25 mg PO BID Home Medications: Clopidogrel [Plavix] 75 mg PO DAILY 04/28/19 [History] Isosorbide MONOnitrate (24 HR) [Imdur] 60 mg PO DAILY 04/28/19 [History] Lisinopril [Zestril] 20 mg PO DAILY 04/28/19 [History] amLODIPine [Norvasc] 5 mg PO DAILY 04/28/19 [History] metFORMIN [Glucophage] 500 mg PO BIDWM 04/28/19 [History] Aspirin [Lo-Dose Aspirin EC] 81 mg PO DAILY 04/29/19 [History] Atorvastatin [Lipitor] 80 mg PO HS 04/29/19 [History] Glimepiride [Amaryl] 2 mg PO DAILY 04/29/19 [History] Amoxicillin/Clavulanate [Augmentin] 875 mg PO BIDWM #10 tablet 05/01/19 [Rx] Allergies/Adverse Reactions: Allergy/AdvReac Type Severity Reaction Status Date / Time promethazine [From Phenergan] AdvReac Mild Anxiety Verified 04/29/19 18:12 Date of admission: 04/29/19 15:36 Primary care physician: Wilber Stephens MD Consults: 04/30/19 10:00 Consult to Cardiology [CONS] Routine Comment: consult per pt request Consulting Provider: Cardiology [place] Reason for Consult: bradycardia Call Completed: Yes Anticipated date of discharge: 05/01/19 - Constitutional Vitals: Temp Pulse Resp BP Pulse Ox 98.4 F 44 16 114/67 95 05/01/19 07:16 05/01/19 07:16 05/01/19 07:16 05/01/19 07:16 05/01/19 07:16 General appearance: Present: A&O X 3 Exam: PHYSICAL EXAMINATION: GENERAL APPEARANCE: The patient is alert, oriented and in no acute distress. HEENT: A bit linear ulcer noted at the left gum fold, a small ulcer noted at the right gum with surrounding soft tissue swelling. No drainage or mass noted. NECK: Supple without lymphadenopathy. HEART: Regular rate and rhythm. LUNGS: No crackles or wheezes are heard. ABDOMEN: Soft, nontender, nondistended with good bowel sounds heard. Inguinal area is normal. EXTREMITIES: Without cyanosis, clubbing or edema. NEUROLOGICAL: Gross nonfocal. SKIN: Warm and dry without any rash. - Patient Status Disposition: Home, Self-Care Condition: Fair Functional capacity at discharge: independent ambulation Overall status at discharge: patient is progressing back to baseline - Discharge Instructions Follow Up With: Wilber Stephens MD [Primary Care Provider] - - Diet and Activity Activity: increase activity as tolerated Diet: advance to your usual diet
[2019-05-01] MEDS: Vitamin B Complex/Vit C/Vit E 1 EACH TABLET PO SCH (09:34)
[2019-05-01] MEDS: Isosorbide MONOnitrate (24 HR) 60 MG TAB.ER.24H PO SCH (09:35)
[2019-05-01] MEDS: amLODIPine 5 MG TABLET PO SCH (09:36)
[2019-05-01] MEDS: Lisinopril 20 MG TABLET PO SCH (09:36)
[2019-05-01] MEDS: Aspirin Enteric Coated 81 MG Tablet PO SCH (09:36)
== END 2019-05-01 11:36 | disposition home or self-care (01) ==
LOC: EMEROOARM 09:07 → 3BNU 09:07
PROVIDERS: ADMIT Internal Medicine Nephrology; ATTEND Internal Medicine Nephrology

== ENCOUNTER 2020-03-11 22:13 | Observation (INO) ==
[2020-03-12] MEDS ORDERED: 0.9 % Sodium Chloride 1,000 ML IVC ONE ×2 (00:10→07:01)
[2020-03-12 00:37] LABS: Bilirubin,Urine Negative (Negative); Blood,Urine Negative (Negative); Clarity,Urine Clear (Clear); Color,Urine Colorless (Yellow); Glucose,Urine (UA) Normal (Normal); Ketones,Urine Negative (Negative); Leukocyte Esterase,Urine Negative (Negative); Nitrite,Urine Negative (Negative); PH,Urine 5.5 pH Units (5.0-8.0); Protein,Urine Negative (Neg-Trace); Specific Gravity,Urine 1.009 (1.010-1.025); Urobilinogen,Urine Normal (Normal)
[2020-03-12 00:45] LABS: Basophils # 0.1 K/mcL (0.0-0.2); Basophils % 0.9 %; Eosinophils # 0.3 K/mcL (0.0-0.6); Eosinophils % 4.6 %; Hematocrit 37.9 % (35.3-44.9); Hemoglobin 12.2 g/dL (11.5-15.4); Immature Granulocytes % 0.1 % (0-4); Lymphocytes # 2.4 K/mcL (0.6-4.6); Lymphocytes % 34.8 %; Mean Corpuscular HGB Conc 32.2 g/dL (31.6-35.5); Mean Corpuscular Volume 87.1 fL (83.0-100.0); Mean Platelet Volume 11.2 fL (9.4-12.4); Monocytes # 0.8 K/mcL (0.0-1.3); Monocytes % 11.2 %; Neutrophils # 3.4 K/mcL (1.6-8.9); Platelet Count 203 K/mcL (140-400); Red Blood Count 4.35 M/mcL (3.82-4.97); Segmented Neutrophils % 48.4 %
[2020-03-12 01:00] LABS: Alanine Aminotransferase 15 Units/L (7-52); Albumin 3.9 g/dL (3.5-5.7); Albumin/Globulin Ratio 1.4 (1.1-2.2); Alkaline Phosphatase 64 Units/L (34-104); Aspartate Amino Transferase 19 Units/L (13-39); BUN/Creatinine Ratio 28 (6-26); Bilirubin,Total 0.8 mg/dL (0.3-1.0); Blood Urea Nitrogen 41 mg/dL (8-23); Calcium 8.5 mg/dL (8.6-10.3); Carbon Dioxide 23 mEq/L (23-29); Chloride 106 mEq/L (98-107); Creatine Kinase 280 Units/L (30-223); Globulin 2.7 g/dL (2.4-3.5); Glucose 59 mg/dL (70-105); Lipase 17 Units/L (11-82); Osmolality,Calculated 294 (280-300); Potassium 4.6 mEq/L (3.5-5.1); Sodium 138 mEq/L (136-145); Total Protein 6.6 g/dL (6.4-8.9); eGFR For African Americans 43 (> 60); eGFR For Non-African Americans 36 (> 60)
[2020-03-12 01:50] LABS: Troponin I < 0.03 ng/mL (< 0.04)
[2020-03-12 06:53] LABS: Adenovirus Not Detected (Not Detect); Bordetella Pertussis Not Detected (Not Detect); Chlamydophila pneumoniae Not Detected (Not Detect); Coronavirus 229E Not Detected (Not Detect); Coronavirus HKU1 Not Detected (Not Detect); Coronavirus NL63 Not Detected (Not Detect); Coronavirus OC43 Not Detected (Not Detect); Human Metapneumovirus Not Detected (Not Detect); Human Rhinovirus/Enterovirus Not Detected (Not Detect); Influenza A Subtype 2009 H1 Not Detected (Not Detect); Influenza B Not Detected (Not Detect); Mycoplasma pneumoniae Not Detected (Not Detect); Parainfluenza Virus 1 Not Detected (Not Detect); Parainfluenza Virus 2 Not Detected (Not Detect); Parainfluenza Virus 3 Not Detected (Not Detect); Parainfluenza Virus 4 Not Detected (Not Detect); Respiratory Syncytial Virus Not Detected (Not Detect)
[2020-03-12] MEDS ORDERED: Naloxone 0.4 MG/ML INJ IVP PRN (06:59)
[2020-03-12] MEDS ORDERED: *HR* HYDROcodone/Acet 5/325 mg TABLET PO PRN (07:00)
[2020-03-12] MEDS ORDERED: *HR* Dextrose 50 % in Water (Vial) 50 ML VIAL IVP PRN (08:07)
[2020-03-12] MEDS ORDERED: Dextrose Gel 15 GM/37.5 ML TUBE PO PRN ×2 (08:07)
[2020-03-12] MEDS ORDERED: D5% in Water 1,000 ML IVC PRN (08:07)
[2020-03-12 09:38] LABS: BUN/Creatinine Ratio 32 (6-26); Blood Urea Nitrogen 35 mg/dL (8-23); Carbon Dioxide 27 mEq/L (23-29); Chloride 107 mEq/L (98-107); Glucose 93 mg/dL (70-105); Osmolality,Calculated 294 (280-300); Potassium 4.6 mEq/L (3.5-5.1); Sodium 138 mEq/L (136-145); eGFR For African Americans > 60 (> 60); eGFR For Non-African Americans 51 (> 60)
[2020-03-12 11:18] VITALS: BP 118/65
[2020-03-12] MEDS ORDERED: Insulin LISPRO 300 UNITS/3 ML VIAL SQ SCH ×2 (11:30→21:00)
== END 2020-03-12 13:10 | disposition home or self-care (01) ==
LOC: 3BNU 22:13 → EMEROOARM 22:13 → SUATTDRO 03-12 02:44 → 2NENU 03-12 03:48 → 3BNU 03-12 08:25
PROVIDERS: ADMIT Internal Medicine; ATTEND Internal Medicine